=== PATIENT | female | born 1955 | race Caucasian/White ===

== ENCOUNTER 2016-12-12 12:54 | Inpatient (IN) | payer OTHER ==
[~2016-12-12] VITALS: Ht 157.5 cm; Wt 78.6 kg
[~2016-12-12 12:54] MED LIST: CYCL5TAB PO
[2016-12-12] MEDS ORDERED: ONDANSETRON 4 MG INJ IV STA (15:49)
[2016-12-12] MEDS ORDERED: SOD CHLORIDE 0.9% 1,000 ML IV STA (15:49)
[2016-12-12] MEDS ORDERED: ASPIRIN 81 MG TAB PO ONE (16:00)
--- NOTE | 2016-12-12 16:19 | RADRPT ---
PROCEDURE: XR Chest. CLINICAL INDICATION: Abdominal pain. TECHNIQUE: Single frontal view of the chest was obtained. COMPARISON: None FINDINGS: The soft tissues are normal. The bony elements are normal. The heart, cardiomediastinal silhouette and hilar structures are normal. The pulmonary vasculature is normal. There is a left-sided aorta. The lungs are clear. The costophrenic angles are normal. IMPRESSION: 1. Normal chest x-ray. RPTAT:AAJJ Physician Geoffrey Date Time Electronically viewed and signed by Juvencio Amin Physician on 12/12/2016 16:19 COOPER/
--- NOTE | 2016-12-12 16:35 | RADRPT ---
PROCEDURE: CT Head without contrast. CLINICAL INDICATION: L arm numbness, resolved weakness x 3 hours TECHNIQUE: Continuous axial CT images were obtained from the base of skull to the vertex. No cont rast was administered. The calculated radiation dose measures 720 mGy centimeters. The CTDI measures 43 mGy COMPARISON: 04/25/2015 FINDINGS: There is mild diffuse cerebral volume loss. The ventricles are symmetric and normal in configuratio n. There is a 16 by 11 mm calcified extra-axial dural-based structure overlying the left frontal op erculum, consistent with a calcified meningioma. There is minimal associated mass effect on the adj acent left frontal lobe. There is no midline shift. There is a small 4 x 12 mm noncalcified extra- axial dural-based lesion over the left frontal convexity, image [id number], likely reflecting an addition al small meningioma. There is a left parafalcine dural based lesion measuring 13 x 6 mm, image 601 - 20. There is no abnormal intra-axial or extra-axial fluid collection. There is no evidence of intracran ial hemorrhage. There are scattered areas of decreased attenuation in the supratentorial white matter, consistent wi th mild small vessel ischemic changes. There is minimal atherosclerotic vascular calcification. The bony calvarium is intact. There are scattered patchy areas of lucency in the calvarium, with int act appearing trabeculations, similar from prior examination. These may reflect hemangiomas, or amb[place] o[place]. The orbital soft tissue contents are unremarkable. Paranasal sinuses appear clear. IMPRESSION: 1. Mild age related cerebral volume loss. Mild small vessel ischemic changes. 2. Minimal atherosclerotic vascular calcification. 3. Stable calcified meningioma over the left frontal operculum, 16 x 11 mm. Additional small stabl e meningioma over the left high frontal convexity, 12 x 4 mm. Left anterior parafalcine meningioma, 6 x 13 mm, stable to minimally increased. RPTAT: DD .Keyon Malone MD, Date Time Electronically viewed and signed by .Keyon Malone MD, MD on 12/12/2016 16:35 .T/
[2016-12-12 16:50] LABS: ADD SCAN DIFF NO
[2016-12-12 16:52] LABS: BASOPHILS % 0.3 % (0.0-2.0); EOSINOPHILS # 0.1 10^3/ul (0.0-0.5); EOSINOPHILS % 0.9 % (0.0-7.0); HEMATOCRIT 38.9 % (37.0-47.0); HEMOGLOBIN 12.9 g/dl (12.0-16.0); LYMPHOCYTES # 2.2 10^3/ul (0.8-2.9); LYMPHOCYTES % 31.7 % (15.0-51.0); MEAN CORPUSCULAR HEMOGLOBIN 30.5 pg (29.0-33.0); MEAN CORPUSCULAR HGB CONC 33.2 g/dl (32.0-37.0); MEAN PLATELET VOLUME 9.6 fl (7.4-10.4); MONOCYTE # 0.4 10^3/ul (0.3-0.9); NEUTROPHIL # 4.2 10^3/ul (1.6-7.5); PLATELET COUNT 192 10^3/UL (140-415); RED BLOOD COUNT 4.23 10^6/ul (4.20-5.40); RED CELL DISTRIBUTION WIDTH 13.1 % (11.5-14.5); WHITE BLOOD COUNT 6.8 10^3/ul (4.8-10.8)
[2016-12-12 17:08] LABS: ALBUMIN 4.5 g/dl (3.3-4.9); CHLORIDE 104 mmol/L (97-110); SODIUM 143 mmol/L (135-144)
[2016-12-12 17:09] LABS: POTASSIUM 3.5 mmol/L (3.5-5.1)
[2016-12-12 17:11] LABS: ALANINE AMINOTRANSFERASE 38 IU/L (13-69); ALBUMIN/GLOBULIN RATIO 1.25; ALKALINE PHOSPHATASE 59 IU/L (42-121); ANION GAP 17 (8-16); ASPARTATE AMINO TRANSFERASE 23 IU/L (15-46); BILIRUBIN,INDIRECT 0.3 mg/dl (0-1.1); BILIRUBIN,TOTAL 0.3 mg/dl (0.2-1.3); BLOOD UREA NITROGEN 19 mg/dl (7-20); CARBON DIOXIDE 26 mmol/L (21-31); TOTAL PROTEIN 8.1 g/dl (6.1-8.1)
[2016-12-12 17:12] LABS: CALCIUM 9.3 mg/dl (8.4-10.2); GLUCOSE 101 mg/dl (70-220)
[2016-12-12 17:21] LABS: INR 0.94; PROTIME 12.6 Sec (12.2-14.2)
[2016-12-12 17:24] LABS: TROPONIN-I < 0.012 ng/ml (0.00-0.12)
[2016-12-12 17:47] LABS: ADD UMIC YES; URINE BILIRUBIN (Dip) NEGATIVE (NEGATIVE); URINE BLOOD (Dip) TRACE (NEGATIVE); URINE COLOR LT. YELLOW (YELLOW); URINE GLUCOSE (Dip) NEGATIVE (NEGATIVE); URINE KETONES (Dip) NEGATIVE (NEGATIVE); URINE LEUKOCYTE ESTERASE (Dip) 3+ (NEGATIVE); URINE NITRITE (Dip) NEGATIVE (NEGATIVE); URINE TOTAL PROTEIN (Dip) NEGATIVE (NEGATIVE); URINE UROBILINOGEN (Dip) 1.0 E.U./dL (0.1-1.0)
[2016-12-12] MEDS ORDERED: IOHEXOL 300MG/ML 150 ML BTL ONE (17:51)
[2016-12-12] MEDS ORDERED: SOD CHLORIDE 0.9% 100 ML ONE (17:51)
[2016-12-12 17:58] LABS: BACTERIA,URINE MANY; SQUAMOUS EPITHELIAL CELL,UR MODERATE
[2016-12-12] MEDS ORDERED: IOHEXOL 350MG/ML 50 ML BTL ONE (18:05)
[2016-12-12] MEDS ORDERED: IOHEXOL 100 ML ONE ×3 (18:05→19:51)
--- NOTE | 2016-12-12 18:46 | RADRPT ---
PROCEDURE: CT angiogram neck and brain. CLINICAL INDICATION: Neurologic deficit. Stroke symptoms. TECHNIQUE: The study was performed utilizing 0.6 axial sections from the thoracic inlet to the irving sofia with the use of 100 cc of Omnipaque 350 intravenous contrast. Multiplanar and rotational MIP re formats were obtained. 3-D reconstructions were not performed. CTDIvol = 37.18 mGy and DLP = 667.40 mGycm. COMPARISON: Noncontrast head CT 12/12/2016 FINDINGS: CTA neck: Right carotid system: No common carotid artery occlusion or atheromatous change of significance is present. The carotid bifurcation is normal. The internal carotid artery shows no evidence for occl usion or significant stenosis. The degree of internal carotid artery stenosis is estimated at less than 30%. Left carotid system:No common carotid artery occlusion or atheromatous change of significance is pre sent. The carotid bifurcation is normal. The internal carotid artery shows no evidence for occlusi on or significant stenosis. The degree of internal carotid artery stenosis is estimated at less than 30%. Internal carotid artery stenosis estimation is based upon NASCET criteria. Right vertebral artery: Codominant with the contralateral side and uniform in caliber throughout wi thout occlusion, dissection or stenosis. Left vertebral artery: Codominant in morphology with no evidence for dissection, stenosis or occlus ion. CTA brain: Anterior circulation: The intracranial internal carotid arteries are normal bilaterally with no rosalind dence for occlusion or stenosis. The anterior and middle cerebral arteries are also normal with no evidence for narrowing. There is no vasculitis pattern or extraluminal projection of contrast to dickinson ggest an aneurysm. Posterior circulation: Basilar artery is uniform in caliber with no evidence of stenosis. The basi lar tip is unremarkable for aneurysm. The posterior cerebral arteries are normal bilaterally as are the superior cerebellar arteries. No vascular malformation is identified. Venous structures: Sagittal sinuses appear patent without evidence of thrombus. Transverse and sig moid sinuses are unremarkable as is the torcula. Internal cerebral veins, vein of Cedric and straigh t sinus show no abnormalities. No cortical vein abnormality is appreciated. Other findings: Thyroid goiter is present with heterogeneous enlargement of the right thyroid lobe. Again seen is a calcified meningioma within the left middle cranial fossa adjacent to the sylvian fissure with minimal local mass effect only. RPTAT:HJJR IMPRESSION: 1. Unremarkable CT angiogram of the neck with no evidence of hemodynamically significant stenosis bi laterally. 2. Unremarkable CT angiogram of the brain with no findings to correlate with the patient's provided history. 3. Thyroid goiter. Consider follow-up outpatient thyroid ultrasound if deemed clinically warranted . 4. Again noted is a left-sided calcified meningioma adjacent to the sylvian fissure. Physician Steffany Date Time Electronically viewed and signed by Physician Steffany on 12/12/2016 18:45 JR/
--- NOTE | 2016-12-12 19:17 | RADRPT ---
AMENDMENT: 12/12/2016 9:04:50 PM Elliott Amin M.D Addendum: Note is made of a 3.1 x 2.4 x 2.1 cm nodule in the right lobe of the thyroid gland. Fur ther characterization workup with a thyroid sonogram is recommended. PROCEDURE: CTA head and neck CLINICAL INDICATION: Possible stroke. TECHNIQUE: The study was performed utilizing a high-resolution multidetector CT scanner. Direct th in section helical 0.625 mm axial sections were obtained through the head and neck after the unevent ful administration of 100 cc of Omnipaque 350 nonionic intravenous contrast material. Coronal and s agittal as well as maximal intensity projection reformations were obtained. 3-D images were made. T he images were reviewed on a PACS workstation. The total CTDIvol is 19.8 mGy and the DLP is 667.4 mG y-cm. One or more of the following dose reduction techniques were used: - Automated exposure control. - Adjustment of the mA and/or kV according to patient size. Use of iterative reconstruction technique. COMPARISON: CT scan of the brain 04/25/2015. FINDINGS: CTA NECK: The origins of the great vessels off the aortic arch are patent and normal in caliber wi thout significant stenosis. The common carotid arteries, carotid bulbs, and internal carotid arteri es are normal in appearance without significant atherosclerotic plaque or stenosis. The vertebral a rteries are also patent and normal in caliber bilaterally. There is no evidence of a hemodynamicall y significant stenosis or dissection. CTA BRAIN: There is a 1.4 by 1 cm by 0.8 cm extra-axial calcified mass in the left insular cistern. This is unchanged compared to the prior CT scan dated 04/25/2015. The anterior, middle and posterior cerebral arteries are unremarkable. The [place] of [place] is unre markable. The anterior communicating artery, basilar artery, posterior cerebral and superior cerebe llar arteries are unremarkable. The anterior inferior cerebellar and posterior inferior cerebellar arteries are unremarkable. The submandibular glands and intrinsic musculature of the tongue are normal. The parotid glands are normal. No enlarged cervical lymph nodes are identified. The globes and extraocular muscles are n ormal. The visible portions of the paranasal sinuses are clear. The dural sinuses are patent. IMPRESSION: 1. A 1.2 x 1.0 x 0.8 cm extra-axial calcified mass consistent with a meningioma is identified adjac ent to the left insular cistern. 2. Otherwise, negative CT angiogram of the head and neck. 3. Findings were phoned to Dr. Irby. RPTAT:AAJJ Physician Geoffrey Date Time Electronically viewed and signed by Juvencio Amin Physician on 12/12/2016 21:04 /
[2016-12-12] MEDS ORDERED: ASPIRIN 325 MG TAB PO ONE (19:30)
[2016-12-12] MEDS ORDERED: LIDOCAINE/MYLANTA 40 ML BTL PO ONE (19:30)
[2016-12-12] MEDS ORDERED: CEFTRIAXONE 1 GM/50 ML (PMX) 50 ML IVPB ONE (19:30)
[2016-12-12] MEDS ORDERED: morphine 2 MG INJ IV ONE (19:30)
[2016-12-12] MEDS ORDERED: ACETAMINOPHEN 325 MG TAB PO PRN (20:00)
[2016-12-12] MEDS ORDERED: ONDANSETRON 4 MG INJ IV PRN (20:00)
[2016-12-12 21:46] VITALS: TEMP 98.3
--- NOTE | 2016-12-12 23:04 | ERA ---
ER Documentation Chief Complaint Date/Time DATE: 12/12/16 TIME: 22:58 Chief Complaint CHEST PAIN RADIATING TO BACK,WEAKNESS HPI 61-year-old female presenting for chest pain radiating to the back for 6 hours. Also has left arm numbness. Patient states that for a short time her left hand was completely paralyzed. This lasted for less than an hour before it resolves completely. Currently she has no symptoms in her left hand. She had no other focal weaknesses and did not get dizzy or have any speech difficulties. Denies headache. States that she does have something in her brain but she was not able to say if it was tumor, aneurysm or what exactly it was. Denies nausea and vomiting. Denies fever and chills. Did have mild shortness of breath per ROS All systems reviewed and are negative except as per history of present illness. Medications Home Meds Active Scripts Cyclobenzaprine Hcl* (Cyclobenzaprine Hcl*) 5 Mg Tablet, 5 MG PO QHS Y for PAIN LEVEL 6-10 for 7 Days, TAB Prov:HERMINIA SOTO PA-C 04/25/15 Allergies Allergies: Coded Allergies: No Known Allergy (Unverified , 04/25/15) PMhx/Soc History of Surgery: Yes (appendectomy) Anesthesia Reaction: No Hx Neurological Disorder: Yes (brain tumor) Hx Respiratory Disorders: No Hx Cardiac Disorders: No Hx Psychiatric Problems: No Hx Miscellaneous Medical Probl: Yes (high cholesterol) Hx Alcohol Use: No Hx Substance Use: No Hx Tobacco Use: No Smoking Status: Former smoker Physical Exam Vitals Vital Signs Date Time Temp Pulse Resp B/P Pulse Ox O2 Delivery O2 Flow Rate FiO2 12/12/16 21:46 98.3 60 17 113/65 94 Room Air 12/12/16 20:29 68 14 112/81 95 Room Air 12/12/16 19:06 98.3 79 15 113/78 98 Room Air 12/12/16 16:30 68 134/73 98 Room Air 12/12/16 13:00 99.4 81 18 132/63 98 Physical Exam Const: [] No acute distress Head: Atraumatic Eyes: Normal Conjunctiva, EOMI, PERRLA ENT: Normal External Ears, Nose and Mouth. Neck: Full range of motion..~ No meningismus. Resp: Clear to auscultation bilaterally Cardio: Regular rate and rhythm, no murmurs Abd: Soft, non tender, non distended. 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 Psych: Normal Mood and Affect Result Diagram: 12/12/16 1630 12/12/16 1630 Results 24 hrs Laboratory Tests Test 12/12/16 16:30 12/12/16 17:00 White Blood Count 6.810^3/ul Red Blood Count 4.2310^6/ul Hemoglobin 12.9g/dl Hematocrit 38.9% Mean Corpuscular Volume 92.0fl Mean Corpuscular Hemoglobin 30.5pg Mean Corpuscular Hemoglobin Concent 33.2g/dl Red Cell Distribution Width 13.1% Platelet Count 44566^3/UL Mean Platelet Volume 9.6fl Neutrophils % 61.0% Lymphocytes % 31.7% Monocytes % 6.0% Eosinophils % 0.9% Basophils % 0.3% Nucleated Red Blood Cells % 0.0/100WBC Neutrophils # 4.210^3/ul Lymphocytes # 2.210^3/ul Monocytes # 0.410^3/ul Eosinophils # 0.110^3/ul Basophils # 0.010^3/ul Nucleated Red Blood Cells # 0.010^3/ul Prothrombin Time 12.6Sec Prothrombin Time Ratio 1.0 INR International Normalized Ratio 0.94 Activated Partial Thromboplast Time 23.0Sec Sodium Level 143mmol/L Potassium Level 3.5mmol/L Chloride Level 104mmol/L Carbon Dioxide Level 26mmol/L Anion Gap 17 Blood Urea Nitrogen 19mg/dl Creatinine 0.80mg/dl Glucose Level 101mg/dl Lactic Acid Level 1.1mmol/L Calcium Level 9.3mg/dl Total Bilirubin 0.3mg/dl Direct Bilirubin 0.00mg/dl Indirect Bilirubin 0.3mg/dl Aspartate Amino Transf (AST/SGOT) 23IU/L Alanine Aminotransferase (ALT/SGPT) 38IU/L Alkaline Phosphatase 59IU/L Troponin I < 0.012ng/ml Total Protein 8.1g/dl Albumin 4.5g/dl Globulin 3.60g/dl Albumin/Globulin Ratio 1.25 Lipase 96U/L Urine Color LT. YELLOW Urine Clarity SLIGHTLY CLOUDY Urine pH 6.0 Urine Specific Pease 1.025 Urine Ketones NEGATIVE Urine Nitrite NEGATIVE Urine Bilirubin NEGATIVE Urine Urobilinogen 1.0 E.U./dL Urine Leukocyte Esterase 3+ Urine Microscopic RBC 2-5/HPF Urine Microscopic WBC >50/HPF Urine Squamous Epithelial Cells MODERATE Urine Bacteria MANY Urine Hemoglobin TRACE Urine Glucose NEGATIVE% Urine Total Protein NEGATIVE Current Medications Medications (Trade) Dose Ordered Sig/Ben Route PRN Reason Start Time Stop Time Status Last Admin Dose Admin Sodium Chloride (NS) 1,000 ml @ 1,000 mls/hr Q1H STAT IV 12/12/16 15:49 12/12/16 16:48 DC 12/12/16 17:20 Ondansetron HCl (Zofran Inj) 4 mg ONCE STAT IV 12/12/16 15:49 12/12/16 15:51 DC 12/12/16 20:27 Aspirin (Aspirin) 324 mg ONCE ONCE PO 12/12/16 16:00 12/12/16 19:08 DC 12/12/16 17:19 IV Flush 10 ml 10 ml STK-MED ONCE .ROUTE 12/12/16 17:51 12/12/16 17:52 DC 12/12/16 18:32 Sodium Chloride (NS) 100 ml @ ud STK-MED ONCE .ROUTE 12/12/16 17:51 12/12/16 17:52 DC 12/12/16 18:32 Iohexol 150 ml 150 ml STK-MED ONCE .ROUTE 12/12/16 17:51 12/12/16 17:52 DC Iohexol (Omnipaque) 100 ml @ ud STK-MED ONCE .ROUTE 12/12/16 18:05 12/12/16 18:06 DC 12/12/16 18:33 Iohexol 50 ml 50 ml STK-MED ONCE .ROUTE 12/12/16 18:05 12/12/16 18:06 DC Ceftriaxone Sodium (Rocephin) 50 ml @ 100 mls/hr ONCE ONCE IVPB 12/12/16 19:30 12/12/16 19:59 DC 12/12/16 20:23 Aspirin (Aspirin) 325 mg ONCE ONCE PO 12/12/16 19:30 12/12/16 19:31 DC Miscellaneous Medication (Gi Cocktail (2)) 40 ml ONCE ONCE PO 12/12/16 19:30 12/12/16 19:31 DC Morphine Sulfate (morphine) 2 mg ONCE ONCE IV 12/12/16 19:30 12/12/16 19:31 DC 12/12/16 20:27 Ondansetron HCl (Zofran Inj) 4 mg ER BRIDGE PRN IV NAUSEA AND/OR VOMITING 12/12/16 20:00 12/13/16 19:59 Acetaminophen 650 mg 650 mg ER BRIDGE PRN PO MILD PAIN/FEVER 12/12/16 20:00 12/13/16 19:59 Iohexol 100 ml @ ud STK-MED ONCE .ROUTE 12/12/16 19:51 12/12/16 19:52 DC Iohexol (Omnipaque) 100 ml @ ud STK-MED ONCE .ROUTE 12/12/16 19:51 12/12/16 19:52 DC Procedures/MDM Transient ischemic attack and chest pain. Patient did not mention left hand weakness until after it brought back a warm blanket for her. Symptom was concerning for cerebral ischemia or hemorrhagic stroke. CT was negative for these potential meningioma, which is likely the thing that the patient was told she had in her head but could not remember. Symptoms of pain radiation and left hand weakness are also concerning for thoracic aortic dissection. Fortunately the CTA of the neck went down to the level of the heart and showed no dissection. Patient is very comfortable in the emergency room. She was given aspirin after the CT returned negative for hemorrhage and given morphine which helped resolve her pain. She was stable and walking around the emergency room. NIH stroke scale was 0 and because of completely resolve symptoms TPA is not indicated. She will be admitted for workup of the chest pain as well as monitoring for the stroke and likely further testing. Dr. marks is admitting. 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 Departure Diagnosis: Primary Impression: TIA (transient ischemic attack) Additional Impression: Chest pain Condition: Stable SUKH SHIN DO December 12, 2016 23:04
[2016-12-13] VITALS (13 sets, daily range): BP systolic 92–141; BP diastolic 59–73; PULSE 50–76; RESP 18–20; Ht 157.5 cm; Wt 78.6 kg
[2016-12-13] MEDS ORDERED: ROSU5TAB5 PO (01:41)
[2016-12-13] MEDS ORDERED: FAMO20TA18 PO (01:41)
[2016-12-13] MEDS ORDERED: IBUP200C11 PO (01:41)
[2016-12-13] MEDS ORDERED: NITROGLYCERIN (SL) 0.4 MG TAB SL PRN (02:00)
[2016-12-13] MEDS ORDERED: ACETAMINOPHEN 325 MG TAB PO PRN (02:00)
[2016-12-13] MEDS ORDERED: ONDANSETRON 4 MG INJ IV PRN (02:00)
[2016-12-13 02:38] LABS: ADD SCAN DIFF NO
[2016-12-13 02:39] LABS: BASOPHILS % 0.2 % (0.0-2.0); EOSINOPHILS # 0.1 10^3/ul (0.0-0.5); EOSINOPHILS % 1.6 % (0.0-7.0); HEMATOCRIT 37.3 % (37.0-47.0); HEMOGLOBIN 12.1 g/dl (12.0-16.0); LYMPHOCYTES # 2.3 10^3/ul (0.8-2.9); LYMPHOCYTES % 47.3 % (15.0-51.0); MEAN CORPUSCULAR HEMOGLOBIN 29.7 pg (29.0-33.0); MEAN CORPUSCULAR HGB CONC 32.4 g/dl (32.0-37.0); MEAN CORPUSCULAR VOLUME 91.6 fl (82.0-101.0); MEAN PLATELET VOLUME 9.4 fl (7.4-10.4); MONOCYTE # 0.4 10^3/ul (0.3-0.9); MONOCYTES % 7.1 % (0.0-11.0); NEUTROPHIL # 2.2 10^3/ul (1.6-7.5); NEUTROPHILS % 43.6 % (39.0-77.0); PLATELET COUNT 144 10^3/UL (140-415); RED BLOOD COUNT 4.07 10^6/ul (4.20-5.40); RED CELL DISTRIBUTION WIDTH 13.2 % (11.5-14.5)
[2016-12-13] MEDS: SOD CHLORIDE 0.9% 1,000 ML IV SCH ×3 (02:43→22:00)
[2016-12-13 03:03] LABS: ALBUMIN 3.4 g/dl (3.3-4.9)
[2016-12-13 03:04] LABS: POTASSIUM 3.6 mmol/L (3.5-5.1)
[2016-12-13 03:05] LABS: CREATININE 0.55 mg/dl (0.44-1.00)
[2016-12-13 03:06] LABS: ALBUMIN/GLOBULIN RATIO 1.03; BILIRUBIN,INDIRECT 0.3 mg/dl (0-1.1); BILIRUBIN,TOTAL 0.3 mg/dl (0.2-1.3); CALCIUM 8.3 mg/dl (8.4-10.2); PHOSPHORUS 4.3 mg/dl (2.5-4.9); TOTAL PROTEIN 6.7 g/dl (6.1-8.1)
[2016-12-13 03:07] LABS: CHOL/HDL RATIO 5.8 RATIO; MAGNESIUM 1.8 mg/dl (1.7-2.5)
[2016-12-13] MEDS: FAMOTIDINE 20 MG TAB PO SCH (08:21)
[2016-12-13] MEDS: ASPIRIN 81 MG TAB PO SCH (08:21)
[2016-12-13] MEDS: HEPARIN 5,000 UNIT/0.5 ML VIAL SC SCH ×2 (08:21→21:11)
--- NOTE | 2016-12-13 09:55 | RADRPT ---
PROCEDURE: US Carotids. CLINICAL INDICATION: bruit , CVA, TIA TECHNIQUE: Multiple sonographic of the carotid bifurcation region and vertebral arteries were obta ined utilizing alonso scale, duplex and color-flow imaging. The images were reviewed on a PACS worksta tion. COMPARISON: No prior studies are available for comparison. FINDINGS: Evaluation of the right carotid bifurcation region reveals no significant calcific atherosclerotic d isease. Evaluation of the left carotid bifurcation region reveals no significant calcific atherosclerotic di sease. There is antegrade flow within the vertebral arteries bilaterally. RIGHT CAROTID MEASUREMENTS: Common Carotid Bgjkax25 (cm/sec) Internal Carotid Artery - cggjyctn10 (cm/sec) Internal Carotid Artery - mid34.9 (cm/sec) Internal Carotid Artery - tuvlsb93.1 (cm/sec) Internal Carotid/Common Carotid1.26 LEFT CAROTID MEASUREMENTS: Common Carotid Hmhogd79.5 (cm/sec) Internal Carotid Artery - tdjigwjy84.2 (cm/sec) Internal Carotid Artery - mid57.8 (cm/sec) Internal Carotid Artery - .1 (cm/sec) Internal Carotid/Common Carotid0.96 RPTAT: AA IMPRESSION: No evidence for hemodynamically significant stenosis in the bilateral internal carotid arteries - va lidated velocity measurements with angiographic measurements, velocity criteria are extrapolated fro m diameter data as defined by the Society of Radiologists in Ultrasound Consensus Conference Radiolo gy 2003; 229;340-346. This study does indirectly reference the measurement of the distal ICA diamet er as the denominator for stenosis measurement. Normal antegrade flow in the vertebral arteries bilaterally. .El Kaiser MD, Date Time Electronically viewed and signed by .El Kaiser MD, MD on 12/13/2016 09:55 .S/
--- NOTE | 2016-12-13 11:44 | HP ---
DATE OF ADMISSION: 12/12/2016 CHIEF COMPLAINT: Left upper extremity weakness and numbness, and chest pain. HISTORY OF PRESENT ILLNESS: The patient is a 61-year-old female with a history of meningioma and dy slipidemia who presented to the emergency department with the above stated chief complaint. The pat mackenzie reported chest pain which is likely left-sided, with no radiation, described as sharp, as well as left arm/hand weakness and numbness that occurred about 6 or 7 hours prior to the . Her lef t upper extremity symptoms completely resolved, with just intermittent chest pain which was actually radiating to her back. She denied any slurred speech, seizure-like activity and visual disturbance and facial droop. When she presented to the ER, vitals were stable. CBC and CMP were unremarkable. Brain CT shows a stable calcified meningioma and CT angio of the head and neck without any acute findings, only the m eningioma and that the CT of the neck showed a thyroid goiter. The patient was given aspirin while she was in the ER. A urinalysis in the ER was consistent with u rinary tract infection. REVIEW OF SYSTEMS: A 12-point review of systems performed and was negative except as mentioned in H PI. PAST MEDICAL HISTORY: As per HPI. PAST SURGICAL HISTORY: Left knee replacement and appendectomy. SOCIAL HISTORY: Denied a history of tobacco, alcohol or illicit drug use. ALLERGIES: NO KNOWN DRUG ALLERGIES. HOME MEDICATIONS: 1. Ibuprofen. 2. Crestor. 3. Pepcid. PHYSICAL EXAMINATION: VITAL SIGNS: Stable. GENERAL: No acute distress, sleepy but arousable. HEENT: No obvious head deformity, pupils reactive to light, extraocular movements intact. CARDIOVASCULAR: Regular rate and rhythm. No extra sounds. LUNGS: Clear. ABDOMEN: Soft, nontender, nondistended. Positive bowel sounds. EXTREMITIES: No edema. NEUROLOGIC: No focal deficits. Sensation is intact. LABORATORY: CBC and CMP are within normal limits. IMAGING: Several imagings with their results were mentioned in the HPI. IMPRESSION 1. Transient ischemic attack. 2. Chest pain. 3. Urinary tract infection. 4. Enlarged right thyroid lobe. 5. Chronic meningioma. PLAN: Given presentation of TIA will complete a stroke workup. So far she had a CT of the head as well as a CT angio of the head and neck with results as mentioned in the HPI, but without any acute findings. We will follow up on the carotid Doppler results as well as a 2D echo. We will place a n eurology consult. She will have physical therapy and formal swallow/speech evaluation. She will be placed on aspirin, continue on Crestor. Will check A1c and fasting lipid panel. She will also nee d to be ruled out for ACS and as such, will send additional troponins. We will follow up on 2D echo . The initial EKG without ST elevation or depression. We will follow up on the urine culture resul ts. She will be continued on antibiotic for infection. Further workup and management will be per clinical course. Dictated By: ABIGAIL JONES/DOLORES Conf#: [id number] DID#: [id number]
[2016-12-13] MEDS: KETOROLAC 15 MG INJ IV PRN (12:07)
[2016-12-13] MEDS: CYCLOBENZAPRINE 10 MG TAB PO SCH ×2 (12:07→21:08)
[2016-12-13] MEDS: LIDOCAINE 5% PATCH TD SCH (12:07)
--- NOTE | 2016-12-13 12:52 | RADRPT ---
Echocardiogram Report Patient Name: KAREN KENDALL Gender: Female Date: 1955 Study Date: 13-Dec-2016 Director Business Development: Omaira Azul [facility] Ref[facility] Physician: ABIGAIL GRANADO Quality: Good Procedures: Transthoracic echocardiogram with complete 2D, M-Mode, and doppler examination. Indications: Chest Pain. 2D/M Mode Doppler Measurement Value Normal Ranges Measurement Value Normal Ranges LVIDd 2D 4.6 3.5 - 5.6 cm AV Peak Chandler 1.5 m/sec LVIDs 2D 2.8 2.1 - 4.1 cm AV Peak PG 9.0 mmHg FS 2D 38.0 % AI Peak PG 73.0 mmHg LVPWd 2D 0.8 0.6 - 1.1 cm AI Peak Chandler 4.3 m/sec IVSd 2D 0.9 0.6 - 1.1 cm AI PHT 532.0 msec IVS/LVPW 2D 1.1 LVOT Peak Chandler 0.9 m/sec AoR Diam 2D 2.7 2.0 - 3.7 cm LVOT Peak PG 3.0 mmHg LA/Ao 2D 1 0 - 1 MV E Peak Chandler 0.7 m/sec EDV 2D 96.1 cm3 MV A Peak Chandler 0.7 m/sec ESV 2D 22.9 cm3 MV E/A 1.0 LA Dimen 2D 3.0 2.3 - 4.0 cm MV Decel Time 264 msec MV E/A 1.0 TR Peak Chandler 2.3 m/sec TR Peak PG 22.0 mmHg RVSP 25.0 mmHg Findings Left Ventricle: Normal left ventricular systolic function. Normal left ventricular cavity size. Normal left ventricular wall thickness. Ejection fraction is visually estimated at 55 %. Abnormal Diastolic Function. Right Ventricle: Normal right ventricular size. Normal right ventricular systolic function. Left Atrium: The left atrium is normal in size. Right Atrium: The right atrium is normal in size. Mitral Valve: Normal appearance of the mitral valve. Mild mitral valve regurgitation. Aortic Valve: No hemodynamically significant aortic stenosis by doppler. Aortic cusps appear mildly calcified. Mild aortic valve regurgitation. Tricuspid Valve: Normal appearance of the tricuspid valve. Estimated peak PA systolic pressure 25 mmHg. There is trace tricuspid regurgitation. Pulmonic Valve: Normal pulmonic valve appearance. There is trace pulmonic regurgitation. Pericardium: Normal pericardium with no significant pericardial effusion. Aorta: Normal aortic root. IVC: Normal size and normal respiratory collapse consistent with normal right atrial pressure. Conclusions 1.Normal left ventricular systolic function. Normal left ventricular cavity size. Normal left ventricular wall thickness. Ejection fraction is visually estimated at 55 %. Abnormal Diastolic Function. 2.Normal right ventricular size. Normal right ventricular systolic function. 3.The left atrium is normal in size. 4.The right atrium is normal in size. 5.Normal appearance of the mitral valve. Mild mitral valve regurgitation. 6.No hemodynamically significant aortic stenosis by doppler. Mild aortic valve regurgitation. 7.Estimated peak PA systolic pressure 25 mmHg. There is trace tricuspid regurgitation. 8.Normal pericardium with no significant pericardial effusion. Electronically Signed By: Manuel Hernandez 13-Dec-2016 12:51:39 -0700 Patient Name: KAREN KENDALL Study Date: 13-Dec-2016 [id number]
[2016-12-13] MEDS ORDERED: LORAZEPAM 2 MG INJ IV ONE (17:30)
--- NOTE | 2016-12-13 19:46 | RADRPT ---
AMENDMENT: 12/13/2016 7:50:15 PM Reyes Brizuela M.D. Impression #4: Minimal nonspecific white matter changes, which may reflect chronic small vessel isc hemic changes. PROCEDURE: MRI Brain without contrast. CLINICAL INDICATION: Transient ischemic attack TECHNIQUE: Multiplanar MRI of the brain without contrast was performed on a 3.0 T scanner with the following sequences obtained: T1-weighted, T2-weighted/FLAIR, diffusion weighted (with ADC map), GR E. COMPARISON: CT brain 12/12/2016 FINDINGS: No acute/recent ischemic infarction or intracranial hemorrhage / blood degradation products are iden tified. No extra-axial fluid collection is seen. 3 small extra-axial lesions are again demonstrated, one overlying the left frontal operculum measuri ng up to 1.5 cm with associated susceptibility compatible with calcifications, another over the post erior left frontal convexity measuring up to 1.4 cm, and the other in the anterior left parasagittal region measuring up to 1.5 cm. These are compatible with meningiomas. No significant mass effect or adjacent vasogenic edema is identified. There is no midline shift. The ventricles and sulci are mildly enlarged, compatible with volume loss. A few scattered minimal areas of increased T2-weighted FLAIR signal intensity are seen in the deep w rika matter which are nonspecific but may reflect chronic small vessel ischemic changes. Flow voids are identified in the proximal intracranial arteries and dural sinuses suggesting patency . The mastoid air cells and paranasal sinuses are grossly clear. IMPRESSION: 1. No evidence of acute intracranial pathology. 2. Three small meningiomas, two in the left frontal region and the other at the anterior left lottie agittal region. No associated vasogenic edema, or midline shift. 3. Mild volume loss. RPTAT: HESO .Reyes Brizuela MD, MD Date Time Electronically viewed and signed by .Reyes Brizuela MD, MD on 12/13/2016 19:51 .O/
[2016-12-13] MEDS ORDERED: ATORVASTATIN 20 MG TAB PO SCH (21:00)
[2016-12-13] MEDS: CEFTRIAXONE 1 GM/50 ML (PMX) 50 ML IVPB SCH (21:08)
[2016-12-14] VITALS (14 sets, daily range): BP systolic 96–138; BP diastolic 55–80; PULSE 61–122; RESP 18–20
[2016-12-14] MEDS: CYCLOBENZAPRINE 10 MG TAB PO SCH ×2 (00:48→08:20)
--- NOTE | 2016-12-14 02:36 | CONS ---
DATE OF ADMISSION: 12/12/2016 DATE OF CONSULTATION: 12/13/2016 TYPE OF CONSULTATION: Neurological. HISTORY OF PRESENT ILLNESS: The patient is a 61-year-old lady with past medical history of dyslipidemia, also she has history of meningioma, who presented with complaints of left upper extremity weakness and numbness along with chest pain. According to the chart, chest pain left sided, no radiation, sharp. Symptoms of weakness and numbness have resolved, but intermittent chest pain was present on admission. The patient's EKG showed sinus rhythm. She had echocardiogram which was read as essentially normal study, ejection fraction of 55. She had CT angiogram of the neck and head which was unremarkable, though goiter was noticed. CAT scan of the head shows stable calcified meningiomas in comparison to CT in 2015. Three stable calcified meningiomas were seen. MRI of the brain was done, confirmed presence of 3 small meningiomas. Left frontal operculum 1.5 cm, another one left frontal convexity 1.4 cm, and left parasagittal region up to 1.5 cm. MRI of the brain was done without contrast. No acute strokes or other abnormality was seen. The patient's labs show normal CBC. Hemoglobin A1c 6.2. Comprehensive metabolic panel within normal limits. Troponins negative. Cholesterol 200, LDL 129, triglycerides 186. Urinalysis: 3+ leukocyte esterase, more than 50 WBCs. Normal PT, PTT. MEDICATIONS: Prior to admission: 1. Crestor. 2. Advil. 3. Famotidine. Currently she is on: 1. Lipitor 20 mg. 2. Ceftriaxone. 3. Flexeril. 4. Toradol. 5. Lidoderm. 6. Pepcid. 7. Aspirin 81 mg. 8. Heparin for DVT prevention. According to the nurse, the patient is very claustrophobic and was refusing MRI , so she was premedicated with benzodiazepines, and she is very sleepy since. ALLERGIES: NONE. SOCIAL HISTORY: No alcohol, tobacco, drug use. FAMILY HISTORY: Not contributory. REVIEW OF SYSTEMS: Unable to obtain. PHYSICAL EXAMINATION: VITAL SIGNS: Temperature 98.1, pulse 76, respirations 18, blood pressure 103/ 64. GENERAL: Not in acute distress, lying in bed. HEENT: Normocephalic, atraumatic head. NECK: No carotid bruits. No thyromegaly. LUNGS: Clear to auscultation bilaterally. CARDIAC: Normal cardiac rhythm and sounds. ABDOMEN: Soft, nontender. EXTREMITIES: No cyanosis, clubbing or edema. NEUROLOGIC: She is lethargic, very briefly arousable by pain, mumbles, goes back to sleep. No definite response to visual threat. Pupils reactive from 4 to 2 mm bilaterally. Extraocular movements intact. Corneal reflexes present bilaterally. Symmetrical face. Gag is present. The patient moves all extremities symmetrically to noxious stimuli. Deep tendon reflexes 2+ upper extremities, absent in lower extremities. Downgoing toes bilaterally. IMPRESSION: 1. Status post possible transient ischemic attack with left upper extremity weakness and numbness per chart, resolved. The patient also presented with chest pain, and workup for cardiological reasons underway. I would recommend to continue aspirin. I will increase statin, Lipitor 40 mg at bedtime. It is usually okay to allow elevated blood pressure in the first few days after acute stroke/TIA, but patient's vital signs essentially within normal limits since admission. She has been normotensive, so continue to keep normotensive and euglycemic. 2. Encephalopathy. She is very lethargic after she was premedicated with benzodiazepine for MRI. Will follow. Continue current treatment. Thank you very much for this interesting consultation. Dictated By: SE GATES/DOLORES Conf#: [id number] DID#: [id number] MTDD
[2016-12-14 07:08] LABS: ADD SCAN DIFF NO
[2016-12-14 07:20] LABS: BASOPHILS % 0.2 % (0.0-2.0); EOSINOPHILS # 0.1 10^3/ul (0.0-0.5); EOSINOPHILS % 1.7 % (0.0-7.0); HEMATOCRIT 42.2 % (37.0-47.0); HEMOGLOBIN 13.3 g/dl (12.0-16.0); LYMPHOCYTES # 1.6 10^3/ul (0.8-2.9); LYMPHOCYTES % 39.6 % (15.0-51.0); MEAN CORPUSCULAR HEMOGLOBIN 29.6 pg (29.0-33.0); MEAN CORPUSCULAR HGB CONC 31.5 g/dl (32.0-37.0); MEAN CORPUSCULAR VOLUME 93.8 fl (82.0-101.0); MEAN PLATELET VOLUME 9.7 fl (7.4-10.4); MONOCYTE # 0.3 10^3/ul (0.3-0.9); MONOCYTES % 6.5 % (0.0-11.0); NEUTROPHIL # 2.1 10^3/ul (1.6-7.5); NEUTROPHILS % 51.8 % (39.0-77.0); PLATELET COUNT 187 10^3/UL (140-415); RED CELL DISTRIBUTION WIDTH 13.2 % (11.5-14.5); WHITE BLOOD COUNT 4.1 10^3/ul (4.8-10.8)
[2016-12-14 08:05] LABS: CALCIUM 9.1 mg/dl (8.4-10.2); CREATININE 0.65 mg/dl (0.44-1.00); POTASSIUM 4.1 mmol/L (3.5-5.1)
[2016-12-14] MEDS: ASPIRIN 81 MG TAB PO SCH (08:20)
[2016-12-14] MEDS: FAMOTIDINE 20 MG TAB PO SCH (08:20)
[2016-12-14] MEDS: SOD CHLORIDE 0.9% 1,000 ML IV SCH ×2 (08:20→18:41)
[2016-12-14] MEDS: HEPARIN 5,000 UNIT/0.5 ML VIAL SC SCH ×2 (08:22→20:42)
[2016-12-14] MEDS: LIDOCAINE 5% PATCH TD SCH (08:24)
--- NOTE | 2016-12-14 09:26 | RADRPT ---
PROCEDURE: CT brain without contrast CLINICAL INDICATION: Code stroke, motor changes TECHNIQUE: CT of the brain without contrast performed on a multidetector CT scanner, with multiplan ar reformats. One or more of the following dose reduction techniques were used: Automated exposure control, adjustment in mA and / or kV according to patient size, use of iterative reconstructive maninder hnique. CTDIvol = 44 mGy; DLP = 630 mGy-cm. COMPARISON: CT brain 12/12/2016, MRI brain 12/13/2016 FINDINGS: No acute intracranial hemorrhage is identified. No extra-axial fluid collection is seen. Again demonstrated are the partially calcified extra-axial lesion overlying the left frontal opercul um measuring up to 1.5 cm, the isodense extra-axial lesion at the posterior left frontal convexity m easuring up to 1.4 cm, and the isodense extra-axial lesion in the anterior left parasagittal region measuring up to 1.4 cm, compatible with meningiomas. These are not significantly changed. Again th ere is no significant mass effect or adjacent vasogenic edema identified. There is no midline shift . Ventricles and sulci are mildly enlarged compatible with volume loss. There are minimal areas of hypodensity in the periventricular - deep white matter which are nonspeci fic but suggestive of chronic small vessel ischemic changes. Crow-white differentiation appears pre served. Atherosclerotic calcifications of the intracranial internal carotid arteries are noted. Osseous structures are unremarkable. Mastoid air cells and imaged paranasal sinuses grossly clear. IMPRESSION: 1. No acute intracranial pathology, or significant change identified. 2. Three small meningiomas, two in the left frontal region and the other at the anterior left lottie agittal region without associated vasogenic edema, or midline shift. 3. Mild volume loss, with minimal chronic small vessel ischemic changes. Results called to Rory Godoy RN at 09:20 a.m., 12/14/2016. RPTAT: VV .Reyes Brizuela MD, Date Time Electronically viewed and signed by .Reyes Brizuela MD, on 12/14/2016 09:26 .O/
--- NOTE | 2016-12-14 10:20 | PN ---
Date/Time of Note Date/Time of Note DATE: 12/14/16 TIME: 10:20 Assessment/Plan VTE Prophylaxis VTE Prophylaxis Intervention: SCD's Lines/Catheters IV Catheter Type (from Nrsg): Saline Lock Assessment/Plan Assessment/Plan 1. Acute encephalopathy 2. Urinary tract infection 3. Dyslipidemia 4. Prediabetes 5. Enlarged thyroid gland on imaging 6. Focal paraspinal back pain likely secondary to musculoskeletal sprain PLAN: * Code stroke has been activated, patient is status status post CT scan of the brain that showed no acute bleed. Meningiomas is said to be chronic. Patient' s overall clinical picture seems more like seizures especially with a history that acute ischemic events. We will await and see what neurology final recommendations are. In the interim we will continue current antibiotics, continue sliding scale insulin. Order physical therapy eval. Do a thyroid screen. And go from there. * Will speak with neurology if they recommend continuing the Flexeril or discontinuing it. It is unlikely that it precipitated this event. Continue lidocaine patch for now for pain. * Further interventions per clinical course * Evaluation time so far has been almost an hour, I will be returning to speak with [facility] neurologist, as well as to speak with patient reassess her and speak with family. Subjective 24 Hr Interval Summary Free Text/Dictation I was emergently called to patient site as a rapid response. The patient had had an acute change in her mental status. When nursing had done the rounds early in the morning, the patient seemed alert and appropriate. She had just gotten of the telephone with her daughter when she had had a normal conversation. However when the nurse returned to give the patient her medications, she felt had to be globally changed. The patient was not able to fully verbalize her name. She is able to move her mouth but she was mumbling. She did not seem to have any one focal deficits but overall she was able to move any extremities. She seemed somewhat flaccid. She had very poor spout liner. I arrived at the bedside after the [employer]ENT was activated and based on her symptoms I ordered a code stroke. Stat bedside glucose was 141, and on the telemetry EKG she was sinus rhythm. I also had a quick conversation with the neurologist Dr. Guaman and he agreed a code stroke activation and thought that her symptoms were likely secondary to seizures versus an acute ischemic stroke. The patient was taken down to CAT scan and I reviewed the results and there are no acute findings. I have also given the physician to physician consult with the telemetry neurologist, and at this time the patient is being evaluated by the telemetry neurologist. Upon returning from CT scan the patient was slightly improved as evidenced on my physical examination below Exam/Review of Systems Vital Signs Vitals Vital Signs Date Time Temp Pulse Resp B/P Pulse Ox O2 Delivery O2 Flow Rate FiO2 12/14/16 08:00 61 12/14/16 07:17 98.2 19 138/71 95 12/13/16 01:15 Room Air Intake and Output 12/13/16 12/13/16 12/14/16 15:00 23:00 07:00 Intake Total 550 ml 200 ml Balance 550 ml 200 ml Exam Constitutional: other (Lethargic), No distress Head: atraumatic, normocephalic Eyes: PERRL, No icteric ENMT: mucosa pink and moist Neck: non-tender, supple Respiratory: clear to auscultation, No labored breathing Cardiovascular: regular rate and rhythm, No murmurs/extra sounds Gastrointestinal: bowel sounds, non-tender, soft Extremities: No edema Neurological: lethargic, No focal weakness Results Result Diagram: 12/14/16 0647 12/14/16 0642 Results 24 hrs Laboratory Tests Test 12/14/16 06:42 12/14/16 06:47 12/14/16 08:47 Sodium Level 142 Potassium Level 4.1 Chloride Level 107 Carbon Dioxide Level 29 Anion Gap 10 Blood Urea Nitrogen 18 Creatinine 0.65 Glucose Level 104 Calcium Level 9.1 Magnesium Level 2.0 White Blood Count 4.1 L Red Blood Count 4.50 Hemoglobin 13.3 Hematocrit 42.2 Mean Corpuscular Volume 93.8 Mean Corpuscular Hemoglobin 29.6 Mean Corpuscular Hemoglobin Concent 31.5 L Red Cell Distribution Width 13.2 Platelet Count 187 # Mean Platelet Volume 9.7 Neutrophils % 51.8 Lymphocytes % 39.6 Monocytes % 6.5 Eosinophils % 1.7 Basophils % 0.2 Nucleated Red Blood Cells % 0.0 Neutrophils # 2.1 Lymphocytes # 1.6 Monocytes # 0.3 Eosinophils # 0.1 Basophils # 0.0 Nucleated Red Blood Cells # 0.0 Bedside Glucose 141 Medications Medications Current Medications Famotidine (Pepcid) 20 mg DAILY PO Last administered on 12/14/16 08:20; Admin Dose 20 MG; Start 12/13/16 at 09:00 Aspirin 81 mg 81 mg DAILY PO Last administered on 12/14/16 08:20; Admin Dose 81 MG; Start 12/13/16 at 09:00 Sodium Chloride (NS) 1,000 ml @ 100 mls/hr Q10H IV Last administered on 08:20; Admin Dose 100 MLS/HR; Start 12/13/16 at 02:00 Ondansetron HCl (Zofran Inj) 4 mg Q6H PRN IV NAUSEA AND/OR VOMITING; Start at 02:00 Acetaminophen (Tylenol Tab) 650 mg Q6H PRN PO PAIN AND OR ELEVATED TEMP; Start 12/13/16 at 02:00 Heparin Sodium (Porcine) (Heparin (5000 Units/0.5 ml)) 5,000 unit BID SC Last administered on 12/14/16 08:22; Admin Dose 5,000 UNIT; Start 12/13/16 at 09:00 Nitroglycerin 1 tab 1 tab Q5M PRN SL ANGINA; Start 12/13/16 at 02:00 Ceftriaxone Sodium (Rocephin) 50 ml @ 100 mls/hr Q24H IVPB Last administered on 12/13/16 21:08; Admin Dose 100 MLS/HR; Start 12/13/16 at 20:00 Ketorolac Tromethamine (Toradol) 15 mg Q8H PRN IV PAIN Last administered on 12:07; Admin Dose 15 MG; Start 12/13/16 at 11:00; Stop 12/16/16 at 10:59 Lidocaine (Lidoderm) 1 patch DAILY TD Last administered on 12/14/16 08:24; Admin Dose 1 PATCH; Start 12/13/16 at 11:00 Atorvastatin Calcium (Lipitor) 40 mg DAILY@21 PO ; Start 12/14/16 at 21:00 AISHWARYA JONES December 14, 2016 10:20
--- NOTE | 2016-12-14 10:38 | STROKE ---
Date/Time of Note Date/Time of Note DATE: 12/14/16 TIME: 10:27 Patient Information General Patient location: inpatient Arrival Date Age 61 Gender female Weight 78.6 kg POC Glucose Glucose Result Bedside Glucose - 72 Hours Test 12/14/16 08:47 Bedside Glucose 141mg/dL (70-220) Vital Signs Vital Signs Vital Signs Date Time Temp Pulse Resp B/P Pulse Ox O2 Delivery O2 Flow Rate FiO2 12/14/16 08:00 59 12/14/16 07:17 98.2 19 138/71 95 12/13/16 01:15 Room Air Patient History Current Medications Allergies: Coded Allergies: No Known Allergies (Verified Allergy, Unknown, 12/13/16) Labs Hematology Labs Hematology Test 12/14/16 06:47 White Blood Count 4.110^3/ul (4.8-10.8) Red Blood Count 4.5010^6/ul (4.20-5.40) Hemoglobin 13.3g/dl (12.0-16.0) Hematocrit 42.2% (37.0-47.0) Mean Corpuscular Volume 93.8fl (82.0-101.0) Mean Corpuscular Hemoglobin 29.6pg (29.0-33.0) Mean Corpuscular Hemoglobin Concent 31.5g/dl (32.0-37.0) Red Cell Distribution Width 13.2% (11.5-14.5) Platelet Count 16328^3/UL (140-415) Mean Platelet Volume 9.7fl (7.4-10.4) Neutrophils % 51.8% (39.0-77.0) Lymphocytes % 39.6% (15.0-51.0) Monocytes % 6.5% (0.0-11.0) Eosinophils % 1.7% (0.0-7.0) Basophils % 0.2% (0.0-2.0) Nucleated Red Blood Cells % 0.0/100WBC (0.0-0.0) Neutrophils # 2.110^3/ul (1.6-7.5) Lymphocytes # 1.610^3/ul (0.8-2.9) Monocytes # 0.310^3/ul (0.3-0.9) Eosinophils # 0.110^3/ul (0.0-0.5) Basophils # 0.010^3/ul (0.0-0.1) Nucleated Red Blood Cells # 0.010^3/ul (0.0-0.0) Chemistry Labs Chemistry Test 12/12/16 16:30 12/13/16 02:30 12/13/16 07:16 12/14/16 06:42 Lactic Acid Level 1.1mmol/L (0.5-2.2) Lipase 96U/L (23-300) Hemoglobin A1c 6.2% (0-5.9) Phosphorus Level 4.3mg/dl (2.5-4.9) Total Bilirubin 0.3mg/dl (0.2-1.3) Direct Bilirubin 0.00mg/dl (0.00-0.20) Indirect Bilirubin 0.3mg/dl (0-1.1) Aspartate Amino Transf (AST/SGOT) 18IU/L (15-46) Alanine Aminotransferase (ALT/SGPT) 30IU/L (13-69) Alkaline Phosphatase 45IU/L (42-121) Total Protein 6.7g/dl (6.1-8.1) Albumin 3.4g/dl (3.3-4.9) Globulin 3.30g/dl (1.3-3.2) Albumin/Globulin Ratio 1.03 Triglycerides Level 186mg/dl (0-149) Cholesterol Level 200mg/dl (100-200) LDL Cholesterol, Calculated 129mg/dl HDL Cholesterol 34mg/dl (35-98) Cholesterol/HDL Ratio 5.8RATIO Troponin I < 0.012ng/ml (0.00-0.12) Sodium Level 142mmol/L (135-144) Potassium Level 4.1mmol/L (3.5-5.1) Chloride Level 107mmol/L (97-110) Carbon Dioxide Level 29mmol/L (21-31) Anion Gap 10 (8-16) Blood Urea Nitrogen 18mg/dl (7-20) Creatinine 0.65mg/dl (0.44-1.00) Glucose Level 104mg/dl (70-220) Calcium Level 9.1mg/dl (8.4-10.2) Magnesium Level 2.0mg/dl (1.7-2.5) Test 5/25/17 08:47 Bedside Glucose 141mg/dL (70-220) History & Physical Patient History Notes Pt Hx Reviewed History of Present Illness 61yo F with h/o multiple meningiomas admitted for TIA now presents with episode of being unable to talk or respond to commands which lasted approximately 10 min then began improving. Patient's daughter reports the episode she initially presented with was similar, but after she began talking again, she was developing intermittent stiffness in her left arm associated with difficulty moving her left arm. Patient now feels her symptoms are improving. Review of Systems Constitutional: no symptoms reported EENTM: no symptoms reported Respiratory: no symptoms reported Cardiovascular: no symptoms reported Gastrointestinal: no symptoms reported Genitourinary: no symptoms reported Musculoskeletal: back pain Skin: no symptoms reported Psychiatric/Neurological: other (reports she is under significant stress) All Other Systems: Reviewed and Negative NIH Stroke Scale NIH Stroke Scale 1A - Level of Conciousness: 0 - Alert keenly [id number] LOC Questions: 0 - Answers both [id number] - LOC Commands: 0 - Performs both tasks2 - Best Gaze: 0 - Normal3 - Visual: 0 - No visual loss4 - Facial Palsy: 0 - No visual loss 5A - Motor Arm - Left: 0 - No [id number] - Motor Arm - Right: 0 - No [id number] - Motor Leg - Left: 0 - No [id number] - Motor Leg - Right: 0 - No drift7 - Limb Ataxia: 0 - Absent8 - Sensory: 0 - Normal9 - Best Language: 0 - No aphasia or normalDysarthria: 0 - [id number] - Extinction and inattentio: 0 - No abnormalityTotal Score: 0 Date/Time Recorded DATE: 12/14/16 TIME: 10:27 Submitted By Desiree Craig t-PA Imaging Review Imaging Reviewed: Yes Date/Time Imaging Reviewed DATE: 12/14/16 TIME: 10:27 Imaging Findings No acute changes t-PA Administration Recommendation: No Weight 78.6 kg Recommedation submitted by Desiree Craig Reason t-PA not Recommended NIHSS=0, not stroke Recommendations Impression Diagnosis complex partial seizures Recommendation 61yo F presents with 2 episodes of transient decreased responsiveness while awake. Neurological exam is now unremarkable. MRI Brain done earlier is notable for multiple meningiomas. I suspect patient is having recurrent complex partial seizures. I recommend patient undergo an EEG. I also reviewed various medication options and recommended Depakote ER 750mg PO BID to start tonight. Patient also complained of back pain, associated with samantha-spinal muscle tenderness. I agreed with Dr. Georges regarding trial of Flexeril, but recommended physical therapy and regular exercise. Post t-PA Order recommendation: Document q15 min vitals Diagnostic Labs: Lipid Proile CMP CBC w/Diff Coags Therapy: Physical Therapy Speech Therapy Occupational Therapy Misc. Recommendations: Bedside Swallow Evaluation Pnumatic Compression Devices DESIREE CRAIG December 14, 2016 10:37
--- NOTE | 2016-12-14 17:39 | RADRPT ---
Vent Rate: 82 bpm RR Interval: 0 msec MI Interval: 146 msec QRS Duration: 98 msec QT Interval: 408 msec QTC Interval: 476 msec P-R-T [place]: 59 - 63 - 58 degrees Normal sinus rhythm Cannot rule out Inferior infarct , age undetermined Cannot rule out Anterior infarct , age undetermined Abnormal ECG Electronically Signed By: Manuel Hernandez [id number]
[2016-12-14] MEDS: CEFTRIAXONE 1 GM/50 ML (PMX) 50 ML IVPB SCH (20:34)
[2016-12-14] MEDS: ATORVASTATIN 40 MG TAB PO SCH (20:35)
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
[2016-12-15] VITALS (11 sets, daily range): BP systolic 113–143; BP diastolic 58–71; PULSE 54–66; RESP 19–20
[2016-12-15] MEDS: LEVETIRACETAM 500 MG TAB PO SCH ×2 (00:24→08:33)
--- NOTE | 2016-12-15 00:41 | SP ---
DATE OF PROCEDURE: 12/14/2016 PROCEDURE: Electroencephalogram. INDICATION: A 61-year-old lady with transient encephalopathy, small meningiomas on the left side. DESCRIPTION OF PROCEDURE: Routine EEG was recorded digitally. [id number] and vitpw-as-jbr neo ages were recorded and reviewed. All impedances were measured and recorded. Cap electrodes were pl aced in accordance with International 10-20 system of electrode placement. FINDINGS: Symmetrically distributed background activity of low to medium amplitude of approximately 8 cycles per second was seen throughout the recording. Eye opening attenuates the background. Morris tic stimulation produces no driving. Hyperventilation elicits no epileptiform activity. No definit e epileptiform transients were seen. No signs of ongoing electrographic seizures or lateralized slo wing. IMPRESSION: Normal study. Please correlate clinically. Dictated By: SE GATES/DOLORES Conf#: [id number] DID#: [id number]
[2016-12-15] MEDS: SOD CHLORIDE 0.9% 1,000 ML IV SCH ×2 (04:00→05:31)
[2016-12-15 06:36] LABS: ADD SCAN DIFF NO
[2016-12-15 06:41] LABS: BASOPHILS % 0.3 % (0.0-2.0); EOSINOPHILS # 0.1 10^3/ul (0.0-0.5); EOSINOPHILS % 2.7 % (0.0-7.0); HEMATOCRIT 37.3 % (37.0-47.0); HEMOGLOBIN 12.2 g/dl (12.0-16.0); LYMPHOCYTES # 1.8 10^3/ul (0.8-2.9); LYMPHOCYTES % 47.6 % (15.0-51.0); MEAN CORPUSCULAR HEMOGLOBIN 29.9 pg (29.0-33.0); MEAN CORPUSCULAR HGB CONC 32.7 g/dl (32.0-37.0); MEAN CORPUSCULAR VOLUME 91.4 fl (82.0-101.0); MEAN PLATELET VOLUME 9.4 fl (7.4-10.4); MONOCYTE # 0.3 10^3/ul (0.3-0.9); MONOCYTES % 6.9 % (0.0-11.0); NEUTROPHIL # 1.6 10^3/ul (1.6-7.5); NEUTROPHILS % 42.5 % (39.0-77.0); PLATELET COUNT 174 10^3/UL (140-415); RED BLOOD COUNT 4.08 10^6/ul (4.20-5.40); RED CELL DISTRIBUTION WIDTH 12.8 % (11.5-14.5); WHITE BLOOD COUNT 3.8 10^3/ul (4.8-10.8)
[2016-12-15 07:04] LABS: CALCIUM 8.8 mg/dl (8.4-10.2); CREATININE 0.65 mg/dl (0.44-1.00); POTASSIUM 3.7 mmol/L (3.5-5.1)
[2016-12-15] MEDS: KETOROLAC 15 MG INJ IV PRN (08:29)
[2016-12-15] MEDS: HEPARIN 5,000 UNIT/0.5 ML VIAL SC SCH ×2 (08:33→20:28)
[2016-12-15] MEDS: ASPIRIN 81 MG TAB PO SCH (08:33)
[2016-12-15] MEDS: FAMOTIDINE 20 MG TAB PO SCH (08:33)
[2016-12-15] MEDS: LIDOCAINE 5% PATCH TD SCH (08:33)
--- NOTE | 2016-12-15 12:20 | PN ---
Date/Time of Note Date/Time of Note DATE: 12/15/16 TIME: 12:18 Assessment/Plan VTE Prophylaxis VTE Prophylaxis Intervention: heparin Lines/Catheters IV Catheter Type (from Nrsg): Peripheral IV Assessment/Plan Assessment/Plan Assessment: 1. Acute encephalopathy 2. Urinary tract infection 3. Dyslipidemia 4. Prediabetes 5. Enlarged thyroid gland on imaging 6. Focal paraspinal back pain likely secondary to musculoskeletal sprain 7. s/p Code stroke called yesterday - possible seizures Plan: pt had a code stroke called for speech difficulty, started no keppra 500mg pO BID for possible seizure neurolgoy following- appreciate help PT evaluation and treatment heparin for DVT prophylaxis d/c IV fluids Subjective 24 Hr Interval Summary Free Text/Dictation no acute events overnight, more calm today, BP stable Exam/Review of Systems Vital Signs Vitals Vital Signs Date Time Temp Pulse Resp B/P Pulse Ox O2 Delivery O2 Flow Rate FiO2 12/15/16 12:05 62 12/15/16 07:22 99.0 20 143/71 98 12/13/16 01:15 Room Air Intake and Output 12/14/16 12/14/16 12/15/16 15:00 23:00 07:00 Intake Total 1250 ml 1500 ml Balance 1250 ml 1500 ml Exam Constitutional: other (Lethargic), Head: atraumatic, normocephalic Eyes: PERRL, ENMT: mucosa pink and moist Neck: non-tender, supple Respiratory: clear to auscultation, No labored breathing Cardiovascular: regular rate and rhythm, No murmurs/extra sounds Gastrointestinal: bowel sounds, non-tender, soft Extremities: No edema Neurological: lethargic, No focal weakness Results Result Diagram: 12/15/16 0615 12/15/1615 Results 24 hrs Laboratory Tests Test 12/15/16 06:15 White Blood Count 3.8 L Red Blood Count 4.08 L Hemoglobin 12.2 Hematocrit 37.3 Mean Corpuscular Volume 91.4 Mean Corpuscular Hemoglobin 29.9 Mean Corpuscular Hemoglobin Concent 32.7 Red Cell Distribution Width 12.8 Platelet Count 174 Mean Platelet Volume 9.4 Neutrophils % 42.5 Lymphocytes % 47.6 Monocytes % 6.9 Eosinophils % 2.7 Basophils % 0.3 Nucleated Red Blood Cells % 0.0 Neutrophils # 1.6 Lymphocytes # 1.8 Monocytes # 0.3 Eosinophils # 0.1 Basophils # 0.0 Nucleated Red Blood Cells # 0.0 Sodium Level 141 Potassium Level 3.7 Chloride Level 111 H Carbon Dioxide Level 25 Anion Gap 9 Blood Urea Nitrogen 12 Creatinine 0.65 Glucose Level 98 Calcium Level 8.8 Medications Medications Current Medications Famotidine (Pepcid) 20 mg DAILY PO Last administered on 12/15/16 08:33; Admin Dose 20 MG; Start 12/13/16 at 09:00 Aspirin 81 mg 81 mg DAILY PO Last administered on 12/15/16 08:33; Admin Dose 81 MG; Start 12/13/16 at 09:00 Sodium Chloride (NS) 1,000 ml @ 100 mls/hr Q10H IV Last administered on 05:31; Admin Dose 100 MLS/HR; Start 12/13/16 at 02:00 Ondansetron HCl (Zofran Inj) 4 mg Q6H PRN IV NAUSEA AND/OR VOMITING; Start at 02:00 Acetaminophen (Tylenol Tab) 650 mg Q6H PRN PO PAIN AND OR ELEVATED TEMP Last administered on 12/14/16 21:41; Admin Dose 650 MG; Start 12/13/16 at 02:00 Heparin Sodium (Porcine) (Heparin (5000 Units/0.5 ml)) 5,000 unit BID SC Last administered on 12/15/16 08:33; Admin Dose 5,000 UNIT; Start 12/13/16 at 09:00 Nitroglycerin 1 tab 1 tab Q5M PRN SL ANGINA; Start 12/13/16 at 02:00 Ceftriaxone Sodium (Rocephin) 50 ml @ 100 mls/hr Q24H IVPB Last administered on 12/14/16 20:34; Admin Dose 100 MLS/HR; Start 12/13/16 at 20:00 Ketorolac Tromethamine (Toradol) 15 mg Q8H PRN IV PAIN Last administered on 08:29; Admin Dose 15 MG; Start 12/13/16 at 11:00; Stop 12/16/16 at 10:59 Lidocaine (Lidoderm) 1 patch DAILY TD Last administered on 12/15/16 08:33; Admin Dose 1 PATCH; Start 12/13/16 at 11:00 Atorvastatin Calcium (Lipitor) 40 mg DAILY@21 PO Last administered on 20:35; Admin Dose 40 MG; Start 12/14/16 at 21:00 Levetiracetam (Keppra) 500 mg BID PO Last administered on 12/15/16 08:33; Admin Dose 500 MG; Start 12/15/16 at 00:00 MILLI LOTT MD December 15, 2016 12:20
--- NOTE | 2016-12-15 12:40 | CONS ---
Date/Time of Note Date/Time of Note DATE: 12/15/16 TIME: 12:35 Consult Date/Type/Reason Admit Date/Time December 12, 2016 at 19:49 Type of Consultation: neurology Subjective no events. Started on keppra last nighty. per daughter, more mood swings; daughter wants to use depakote er as suggested by teleneurogist. Also per daughter at times pt had episodes of staring, decreased responsiveness in the past Objective Vital Signs Date Time Temp Pulse Resp B/P Pulse Ox O2 Delivery O2 Flow Rate FiO2 12/15/16 12:05 62 12/15/16 07:22 99.0 20 143/71 98 12/13/16 01:15 Room Air Intake and Output 12/14/16 12/14/16 12/15/16 15:00 23:00 07:00 Intake Total 1250 ml 1500 ml Balance 1250 ml 1500 ml Results/Medications Result Diagram: 12/15/16 0615 12/15/16 0615 Results 24 hrs Laboratory Tests Test 12/15/16 06:15 White Blood Count 3.8 L Red Blood Count 4.08 L Hemoglobin 12.2 Hematocrit 37.3 Mean Corpuscular Volume 91.4 Mean Corpuscular Hemoglobin 29.9 Mean Corpuscular Hemoglobin Concent 32.7 Red Cell Distribution Width 12.8 Platelet Count 174 Mean Platelet Volume 9.4 Neutrophils % 42.5 Lymphocytes % 47.6 Monocytes % 6.9 Eosinophils % 2.7 Basophils % 0.3 Nucleated Red Blood Cells % 0.0 Neutrophils # 1.6 Lymphocytes # 1.8 Monocytes # 0.3 Eosinophils # 0.1 Basophils # 0.0 Nucleated Red Blood Cells # 0.0 Sodium Level 141 Potassium Level 3.7 Chloride Level 111 H Carbon Dioxide Level 25 Anion Gap 9 Blood Urea Nitrogen 12 Creatinine 0.65 Glucose Level 98 Calcium Level 8.8 Medications Current Medications Famotidine (Pepcid) 20 mg DAILY PO Last administered on 12/15/16 08:33; Admin Dose 20 MG; Start 12/13/16 at 09:00 Aspirin (Aspirin) 81 mg DAILY PO Last administered on 12/15/16 08:33; Admin Dose 81 MG; Start 12/13/16 at 09:00 Ondansetron HCl (Zofran Inj) 4 mg Q6H PRN IV NAUSEA AND/OR VOMITING; Start at 02:00 Acetaminophen (Tylenol Tab) 650 mg Q6H PRN PO PAIN AND OR ELEVATED TEMP Last administered on 12/14/16 21:41; Admin Dose 650 MG; Start 12/13/16 at 02:00 Heparin Sodium (Porcine) (Heparin (5000 Units/0.5 ml)) 5,000 unit BID SC Last administered on 12/15/16 08:33; Admin Dose 5,000 UNIT; Start 12/13/16 at 09:00 Nitroglycerin 1 tab 1 tab Q5M PRN SL ANGINA; Start 12/13/16 at 02:00 Ceftriaxone Sodium (Rocephin) 50 ml @ 100 mls/hr Q24H IVPB Last administered on 12/14/16 20:34; Admin Dose 100 MLS/HR; Start 12/13/16 at 20:00 Ketorolac Tromethamine (Toradol) 15 mg Q8H PRN IV PAIN Last administered on 08:29; Admin Dose 15 MG; Start 12/13/16 at 11:00; Stop 12/16/16 at 10:59 Lidocaine (Lidoderm) 1 patch DAILY TD Last administered on 12/15/16 08:33; Admin Dose 1 PATCH; Start 12/13/16 at 11:00 Atorvastatin Calcium (Lipitor) 40 mg DAILY@21 PO Last administered on 20:35; Admin Dose 40 MG; Start 12/14/16 at 21:00 Levetiracetam (Keppra) 500 mg BID PO Last administered on 12/15/16 08:33; Admin Dose 500 MG; Start 12/15/16 at 00:00 Assessment/Plan Chief Complaint/Hosp Course PHYSICAL EXAMINATION: GENERAL: Not in acute distress, lying in bed. HEENT: Normocephalic, atraumatic head. NECK: No carotid bruits. No thyromegaly. LUNGS: Clear to auscultation bilaterally. CARDIAC: Normal cardiac rhythm and sounds. ABDOMEN: Soft, nontender. EXTREMITIES: No cyanosis, clubbing or edema. NEUROLOGIC: She is AAOx3, fluent speech. Normal visual watts. Pupils reactive from 4 to 2 mm bilaterally. Extraocular movements intact. Corneal reflexes present bilaterally. Symmetrical face. Normal strength and sensations. The patient moves all extremities symmetrically 5/5. Deep tendon reflexes 2+ upper extremities, absent in lower extremities. Downgoing toes bilaterally. IMPRESSION: 1. Possible complex partial seizures. Less likely transient ischemic attack, or complex migraine. Chronic migraines Same ASA, lipitor, keep normotensive euglycemic. Dc keppra 500 bid. Start Depakote er 500 mg 2 tab daily x 1 week, then 3 tab daily. Out pt f/u 2-4 weeks. If no events, ok to d/c tomorrow. 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 Problems: SE KAISER MD December 15, 2016 12:40
[2016-12-15] MEDS: DIVALPROEX (ER) 500 MG TAB PO SCH (18:27)
[2016-12-15] MEDS: CEFTRIAXONE 1 GM/50 ML (PMX) 50 ML IVPB SCH (20:27)
[2016-12-15] MEDS: ATORVASTATIN 40 MG TAB PO SCH (20:27)
[2016-12-16] VITALS: PULSE 72
[2016-12-16 03:50] VITALS: BP 124/69; RESP 20
[2016-12-16 04:00] VITALS: PULSE 66
[2016-12-16 06:32] LABS: ADD SCAN DIFF NO
[2016-12-16 06:45] LABS: BASOPHILS % 0.4 % (0.0-2.0); EOSINOPHILS # 0.1 10^3/ul (0.0-0.5); EOSINOPHILS % 1.9 % (0.0-7.0); HEMATOCRIT 37.6 % (37.0-47.0); HEMOGLOBIN 12.3 g/dl (12.0-16.0); LYMPHOCYTES # 2.2 10^3/ul (0.8-2.9); LYMPHOCYTES % 38.4 % (15.0-51.0); MEAN CORPUSCULAR HEMOGLOBIN 29.8 pg (29.0-33.0); MEAN CORPUSCULAR HGB CONC 32.7 g/dl (32.0-37.0); MEAN PLATELET VOLUME 9.5 fl (7.4-10.4); MONOCYTE # 0.4 10^3/ul (0.3-0.9); MONOCYTES % 6.2 % (0.0-11.0); NEUTROPHILS % 52.9 % (39.0-77.0); PLATELET COUNT 181 10^3/UL (140-415); RED BLOOD COUNT 4.13 10^6/ul (4.20-5.40); RED CELL DISTRIBUTION WIDTH 12.8 % (11.5-14.5); WHITE BLOOD COUNT 5.7 10^3/ul (4.8-10.8)
[2016-12-16 07:15] LABS: POTASSIUM 3.4 mmol/L (3.5-5.1)
[2016-12-16 07:17] LABS: CREATININE 0.61 mg/dl (0.44-1.00)
[2016-12-16 07:42] VITALS: BP 134/68; RESP 18
[2016-12-16] MEDS: FAMOTIDINE 20 MG TAB PO SCH (08:06)
[2016-12-16] MEDS: DIVALPROEX (ER) 500 MG TAB PO SCH (08:06)
[2016-12-16] MEDS: ASPIRIN 81 MG TAB PO SCH (08:06)
[2016-12-16] MEDS: LIDOCAINE 5% PATCH TD SCH (08:06)
[2016-12-16] MEDS: HEPARIN 5,000 UNIT/0.5 ML VIAL SC SCH (08:17)
[2016-12-16 08:37] VITALS: PULSE 58
[2016-12-16 10:59] VITALS: BP 121/59; RESP 20
[2016-12-16] MEDS ORDERED: POTASSIUM CHLORIDE (SR) 20 MEQ TAB PO STA (11:00)
[2016-12-16] MEDS ORDERED: DIVA500T15 PO (11:02)
--- NOTE | 2016-12-16 11:04 | PDOCDIS ---
Discharge Instructions CONDITION Patient Condition: Good HOME CARE INSTRUCTIONS: Diet Instructions: Regular ACTIVITY: Activity Restrictions: Do not Drive FOLLOW UP/APPOINTMENTS Appointments F/U WITH YOUR PCP IN 1-2 WEEKS, F/U WITH A NEUROLOGIST ARCENIO GOMEZ December 16, 2016 11:03
--- NOTE | 2016-12-17 06:30 | DS ---
DATE OF ADMISSION: 12/12/2016 DATE OF DISCHARGE: 12/16/2016 DISCHARGE DIAGNOSES: 1. Acute encephalopathy, likely secondary to a complex partial seizure. The patient was started on Depakote and discharged with Depakote. Mentation is now stabilized. EEG showed a normal study. 2. Urinary tract infection status post Rocephin x3 days. 3. Prediabetes. 4. Back pain secondary musculoskeletal sprain. HOSPITAL COURSE: The patient is a 61-year-old female with history of meningioma, dyslipidemia. The patient presents to with left upper extremity weakness, numbness, as well as chest pain. The patie nt was felt initially to have a TIA. The patient was diagnosed with a UTI. Received Rocephin. The patient's troponins were negative x3. A1c was checked and it was 6.2. LDL was 129. Urine culture showed mixed gram-positive organisms. The UA did suggest a UTI. The patient did have a code strok e called for speech difficulty during the hospitalization. She was started on Keppra. The patient was seen by neurology. An EEG was done that was normal. Neurology recommended to discharge Keppra and start Depakote for possible complex partial seizures, TIA was felt to be less likely. Recommend ation was for patient not to drive. The patient's mentation did stabilize. She had no further epis odes of seizures. She was felt to be stable for discharge. On the day of discharge, the patient's vitals, labs, physical exam were stable. She had no acute complaints. Questions answered. CONDITION ON DISCHARGE: Stable. DISPOSITION: To home. MEDICATIONS: The patient was given a prescription for Depakote 1000 mg daily for a week and then e is to increase her Depakote to ____ mg daily after 1 week. The patient is to continue her other h ome medications. The patient is also to take aspirin 81 mg daily. FOLLOWUP: The patient is to follow up with her PCP in 1 to 2 weeks. Greater than 30 minutes were spent coordinating discharge of the patient. Dictated By: ARCENIO LEYVA/NTS Conf#: [id number] DID#: [id number]
== END 2016-12-16 12:00 | disposition home or self-care (01) | DRG 101 ==
LOC: E/R 12:54 → TEL 19:49
PROVIDERS: ADMIT Internal Medicine; ATTEND Internal Medicine
DX: G40.89 Other seizures (principal); N39.0 Urinary tract infection, site not specified; R73.03 Prediabetes; R07.9 Chest pain, unspecified; E04.9 Nontoxic goiter, unspecified; D32.0 Benign neoplasm of cerebral meninges; S23.3XXA Sprain of ligaments of thoracic spine, initial encounter; X58.XXXA Exposure to other specified factors, initial encounter; Z91.81 History of falling
CPT/HCPCS: 36415; 70450; 70496; 70498; 70551; 71010; 80048; 80053; 80061; 81001; 82962; 83036; 83605; 83690; 83735; 84100; 84484; 85025; 85610; 85730; 87086; 92610; 93005; 93306; 93880; 95819; 96374; 96375; 97110; 97116; 97162; 97530; J0696; J1644; J1885; J2060; J2270; J2405; J7030; Q9967

== ENCOUNTER 2017-03-27 18:34 | Emergency (ER) | payer OTHER ==
[~2017-03-27] VITALS: Ht 157.5 cm; Wt 79.5 kg
[~2017-03-27 18:34] MED LIST changes: -CYCL5TAB PO; +DIVA500T15 PO; +FAMO20TA18 PO; +IBUP200C11 PO; +ROSU5TAB5 PO
[2017-03-27 18:47] VITALS: Ht 157.5 cm; Wt 79.5 kg
--- NOTE | 2017-03-27 21:32 | ERD ---
ER Documentation Chief Complaint Date/Time DATE: 03/27/17 TIME: 21:29 Chief Complaint VB since sunday HPI 61-year-old female presents to emergency department for evaluation of labial cyst seen 3 days ago by PMD and started on ABX, pt reports bleeding x 4 days. pt has not seen TURPENTINE DISTILLER . went to [facility] told that they do not treat labial cyst. pt has no paper work from hospital ROS All systems reviewed and are negative except as per history of present illness. Medications Home Meds Active Scripts Divalproex Sodium* (Divalproex ER*) 500 Mg Tab.er.24h, 1000 MG PO DAILY, #60 1 Refill Prov:ARCENIO GOMEZ 12/16/16 Reported Medications Famotidine* (Famotidine*) 20 Mg Tablet, 20 MG PO DAILY, #30 TAB 12/13/16 Ibuprofen* (Advil*) 200 Mg Capsule, 200 MG PO Q6H Y for PAIN, CAP 12/13/16 Rosuvastatin Calcium* (Crestor*) 5 Mg Tablet, 5 MG PO QHS, #30 TAB 12/13/16 Allergies Allergies: Coded Allergies: No Known Allergies (Verified Allergy, Unknown, 12/13/16) PMhx/Soc History of Surgery: Yes (appendectomy, left knee replacement, left breat tumor removal) Anesthesia Reaction: No Hx Neurological Disorder: Yes (brain tumor) Hx Respiratory Disorders: No Hx Cardiac Disorders: No Hx Psychiatric Problems: No Hx Miscellaneous Medical Probl: Yes (L TKR,BRAIN TUMOR,HIGH CHOLESTEROL, APPENDECTOMY) Hx Alcohol Use: No Hx Substance Use: No Hx Tobacco Use: No Smoking Status: Current every day smoker Physical Exam Vitals Stable, triage notes reviewed Physical Exam Const: Nourished well-appearing well-hydrated no acute distress Head: Atraumatic Eyes: Normal Conjunctiva ENT: Normal External Ears, Nose and Mouth. Neck: Full range of motion..~ No meningismus. 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 Inner aspect of right labia majora presents with a soft bleeding papule. No evidence of abscess or Bartholin's cyst Skin: No petechiae or rashes Ext: No cyanosis, or edema Neur: Awake and alert Psych: Normal Mood and Affect Results 24 hrs Current Medications Medications (Trade) Dose Ordered Sig/Ben Route PRN Reason Start Time Stop Time Status Last Admin Dose Admin Lidocaine (Lmx 4% Plus) 1 applic ONCE ONCE TOP 03/27/17 22:00 03/27/17 22:01 DC 03/27/17 22:03 Procedures/MDM This pleasant 61-year-old female presents to emergency department for evaluation of a bleeding lesion in her vagina. Highly suspicion for a Bartholin 's cyst. Physical exam shows a right inner labial minora bleeding papule. This case discussed with supervising physician Yasmin , patient given samantha-pad instructed to follow-up with gynecology Dr.Reiche rogers. Instructed to continue her antibiotic as prescribed by primary physician, schedule appointment with synthetic chemist tomorrow. Patient is stable with no new complaints during ER course, clinically there is no current evidence to suggest PID, abscess, cellulitis, or any other emergent condition appearing to require further evaluation or hospitalization. I feel the patient is stable for discharge at this time. I have discussed results, examination findings, the treatment plan with the patient and family present prior to discharge. Indications for emergent reevaluation, side effects of medication were also discussed. All questions were answered. Patient verbalizes understanding and agrees with plan of care. Departure Diagnosis: Primary Impression: Vaginal lesion Condition: Good Additional Instructions: Thank you for for coming to the [facility] for your care today. Please ask your nurse or provider if you have questions about your care today and do not leave until all your questions have been answered. Please use any medications given as directed and follow-up with your doctor (or the doctor you were referred to) in the next 2-3 days. If you do not have a primary care doctor you may follow up at the [facility] (listed below). You may also use motrin and tylenol as needed for fever and/or pain unless instructed otherwise by your provider or nurse. Indications for more urgent follow-up have been discussed, but you may return to the Emergency Department at ANY time for any worrisome or worsening symptoms. If you have abdominal pain, please know that no test or exam you received is perfect and you should follow up within 8 hours for continued pain. If you had any imaging studies today, such as an X-Ray or CT Scan, these studies will be reviewed later by a radiologist. You will be called if there are important findings that were not identified today, so make sure the contact information you provided at registration is correct. If you received any narcotic pain control medicine today, such as Vicodin, Morphine or Dilaudid, your coordination and judgment may be affected for a number of hours. Please do not drive or operate heavy machinery, and you may want someone to assist you at home. If you were given a prescription for narcotic medication, be aware that it is very addictive- use sparingly and only if necessary. AVIS HERMAN Mar 27, 2017 21:32
[2017-03-27] MEDS ORDERED: LIDOCAINE 4% CR TOP ONE (22:00)
[2017-03-27 23:03] VITALS: BP 114/78; PULSE 75; RESP 16
== END 2017-03-27 23:04 | disposition home or self-care (01) ==
LOC: FTE 18:34
DX: N89.8 Other specified noninflammatory disorders of vagina (principal); F17.210 Nicotine dependence, cigarettes, uncomplicated; Z96.652 Presence of left artificial knee joint
CPT/HCPCS: Z7502; Z7610; 99282

== ENCOUNTER 2018-07-25 12:13 | Emergency (ER) | payer OTHER, MEDICARE ==
[~2018-07-25] VITALS: Ht 170.2 cm; Wt 65.0 kg
[~2018-07-25 12:13] MED LIST changes: +CRES5 PO; -ROSU5TAB5 PO
[2018-07-25 12:16] VITALS: BP 187/79; PULSE 79; RESP 17; Ht 170.2 cm; Wt 65.0 kg
[2018-07-25] MEDS ORDERED: LORAZEPAM 1 MG TAB PO ONE (13:30)
[2018-07-25] MEDS ORDERED: LORA-441 PO (15:19)
--- NOTE | 2018-07-25 15:46 | ERD ---
ER Documentation Chief Complaint Chief Complaint PT WAS DRIVING, FELT ANXIOUS, PULLED OVER, CALLED 911, HX ANXIETY HPI 63-year-old female presenting with anxiety and chest tightness times 1 day. Patient states this happened many years ago and resolved on its own. She states this time she has some chest tightness and troubles breathing that came on spontaneously. She denies any tearing chest pain. Denies any arm numbness. Has not taken medications for symptoms. Patient was driving when this started. Denies medical problems. NKDA. Surgical history left finger surgery. Social history denies ROS All systems reviewed and are negative except as per history of present illness. Medications Home Meds Active Scripts Lorazepam* (Ativan*) 0.5 Mg Tablet, 0.5 MG PO Q8, #10 TAB Prov:ADDIS ARMENDARIZ PA-C 07/25/18 Divalproex Sodium* (Divalproex ER*) 500 Mg Tab.er.24h, 1000 MG PO DAILY, #60 1 Refill Prov:ARCENIO GOMEZ 12/16/16 Reported Medications Famotidine* (Famotidine*) 20 Mg Tablet, 20 MG PO DAILY, #30 TAB 12/13/16 Ibuprofen* (Advil*) 200 Mg Capsule, 200 MG PO Q6H PRN for PAIN, CAP 12/13/16 Rosuvastatin Calcium* (Crestor*) 5 Mg Tablet, 5 MG PO QHS, #30 TAB 12/13/16 Allergies Allergies: Coded Allergies: No Known Allergies (Verified Allergy, Unknown, 07/25/18) PMhx/Soc History of Surgery: Yes (appendectomy, left knee replacement, left breat tumor removal) Anesthesia Reaction: No Hx Neurological Disorder: Yes (brain tumor) Hx Respiratory Disorders: No Hx Cardiac Disorders: No Hx Psychiatric Problems: No Hx Miscellaneous Medical Probl: Yes (L TKR,BRAIN TUMOR,HIGH CHOLESTEROL,APPENDECTOMY) Hx Alcohol Use: No Hx Substance Use: No Hx Tobacco Use: No Smoking Status: Never smoker FmHx Family History: No diabetes, No coronary disease, No other Physical Exam Vitals Vital Signs Date Temp Pulse Resp B/P (MAP) Pulse Ox O2 O2 Flow FiO2 Time Delivery Rate 07/25/18 98.2 79 17 187/79 99 12:16 (115) Physical Exam GENERAL: The patient is well-appearing, well-nourished, in no acute distress HEENT: Atraumatic. Conjunctivae are pink. Pupils equal, round, and reactive to light. There is no scleral icterus. Tympanic membranes clear bilaterally. Oropharynx clear. CHEST: Clear to auscultation bilaterally. There are no rales, wheezes or rhonchi. HEART: Regular rate and rhythm. No murmurs, clicks, rubs or gallops. No S3 or S4. Result Diagram: 07/25/18 1421 07/25/18 1421 Results 24 hrs Laboratory Tests Test 07/25/18 14:21 White Blood Count 6.6 10^3/ul Red Blood Count 4.29 10^6/ul Hemoglobin 12.8 g/dl Hematocrit 39.4 % Mean Corpuscular Volume 91.8 fl Mean Corpuscular Hemoglobin 29.8 pg Mean Corpuscular Hemoglobin Concent 32.5 g/dl Red Cell Distribution Width 13.0 % Platelet Count 202 10^3/UL Mean Platelet Volume 9.3 fl Immature Granulocytes % 0.200 % Neutrophils % 64.9 % Lymphocytes % 27.9 % Monocytes % 5.9 % Eosinophils % 0.8 % Basophils % 0.3 % Nucleated Red Blood Cells % 0.0 /100WBC Immature Granulocytes # 0.010 10^3/ul Neutrophils # 4.3 10^3/ul Lymphocytes # 1.9 10^3/ul Monocytes # 0.4 10^3/ul Eosinophils # 0.1 10^3/ul Basophils # 0.0 10^3/ul Nucleated Red Blood Cells # 0.0 10^3/ul Sodium Level 144 mmol/L Potassium Level 3.9 mmol/L Chloride Level 104 mmol/L Carbon Dioxide Level 27 mmol/L Anion Gap 13 Blood Urea Nitrogen 16 mg/dl Creatinine 0.55 mg/dl Est Glomerular Filtrat Rate mL/min > 60 mL/min Glucose Level 101 mg/dl Calcium Level 9.3 mg/dl Total Bilirubin 0.5 mg/dl Direct Bilirubin 0.00 mg/dl Indirect Bilirubin 0.5 mg/dl Aspartate Amino Transf (AST/SGOT) 25 IU/L Alanine Aminotransferase (ALT/SGPT) 32 IU/L Alkaline Phosphatase 63 IU/L Troponin I < 0.012 ng/ml Total Protein 7.7 g/dl Albumin 4.5 g/dl Globulin 3.20 g/dl Albumin/Globulin Ratio 1.40 Current Medications Medications Dose Sig/Ben Start Time Status Last (Trade) Ordered Route PRN Stop Time Admin Dose Reason Admin Lorazepam 1 mg ONCE ONCE 07/25/18 DC 07/25/18 (Ativan) PO 13:30 07/25/18 13:38 13:31 Procedures/MDM EKG: Rate/Rhythm: 67 bpm . normal Sinus Rhythm QRS, ST, T-waves: No changes consistent w/ acute ischemia Impression: No evidence of ischemia or arrhythmia DIAGNOSTIC IMAGING REPORT Patient: KAREN KENDALL : 1955 Age: 63 Sex: F MR #: [id number] DOS: 07/25/18 1325 Ordering MD: RALPH ARMENDARIZ PA-C Location: [facility] Room/Bed: PROCEDURE: XR Chest. CLINICAL INDICATION: Shortness of breath. Chest pain TECHNIQUE: Single AP portable chest. COMPARISON: No prior Chest x-ray FINDINGS: The cardiomediastinal silhouette is within normal limits of size. The lungs are clear without pleural effusion or focal consolidation. No pneumothorax. The osseous structures and soft tissues are unremarkable. IMPRESSION: 1. No evidence for active cardiopulmonary disease. MDM: 63-year-old female presenting with anxiety and chest tightness. Patient's chest x-ray in blood work is within normal limits. Patient symptoms are likely anxious in nature and she will be treated with supportive medications. I have low suspicion for cardiac or pulmonary emergency. Patient is discharged with stricter precautions and told to follow-up with primary care within 1-2 days of close evaluation. All questions answered at discharge Departure Diagnosis: Primary Impression: Anxiety Condition: Stable Patient Instructions: Anxiety Reaction Referrals: NOA SAMSON (PCP) Additional Instructions: FOLLOW UP WITH YOUR PRIMARY CARE PHYSICIAN TOMORROW.Return to this facility if you are not improving as expected. ADDIS ARMENDARIZ PA-C Jul 25, 2018 15:46
== END 2018-07-25 16:13 | disposition home or self-care (01) ==
LOC: FTE 12:13
DX: F41.9 Anxiety disorder, unspecified (principal); R07.9 Chest pain, unspecified; Z96.652 Presence of left artificial knee joint
CPT/HCPCS: 36415; 71045; 80053; 84484; 85025; 85378; 93005; Z7502; Z7610

== ENCOUNTER 2019-02-13 10:38 | Emergency (ER) | payer MEDICARE, OTHER ==
[~2019-02-13] VITALS: Ht 157.5 cm; Wt 76.6 kg
[~2019-02-13 10:38] MED LIST changes: +LORA-441 PO; +LORA1TAB PO
[2019-02-13 10:40] VITALS: Ht 157.5 cm; Wt 76.6 kg
--- NOTE | 2019-02-13 11:32 | ERD ---
ER Documentation Chief Complaint Chief Complaint feels anxious HPI 63-year-old female presents with complaint of shortness of breath. States that she feels anxious as well. Started this morning. Patient denies palpitations, malignancy, recent travel, dyspnea, leg swelling, leg erythema, fever, night sweats, weight loss, fatigue, hemoptysis, wheezing, dyspnea, pleuritic chest pain, or orthopnea. ROS All systems reviewed and are negative except as per history of present illness. Medications Home Meds Active Scripts Lorazepam* (Lorazepam*) 1 Mg Tablet, 1 MG PO Q8H PRN for ANXIETY, #10 TAB Prov:ABIGAIL SOLORZANO 02/13/19 Lorazepam* (Ativan*) 0.5 Mg Tablet, 0.5 MG PO Q8, #10 TAB Prov:ADDIS ARMENDARIZ PA-C 07/25/18 Divalproex Sodium* (Divalproex ER*) 500 Mg Tab.er.24h, 1000 MG PO DAILY, #60 1 Refill Prov:ARCENIO GOMEZ 12/16/16 Reported Medications Famotidine* (Famotidine*) 20 Mg Tablet, 20 MG PO DAILY, #30 TAB 12/13/16 Ibuprofen* (Advil*) 200 Mg Capsule, 200 MG PO Q6H PRN for PAIN, CAP 12/13/16 Rosuvastatin Calcium* (Crestor*) 5 Mg Tablet, 5 MG PO QHS, #30 TAB 12/13/16 Allergies Allergies: Coded Allergies: No Known Allergies (Verified Allergy, Unknown, 07/25/18) PMhx/Soc History of Surgery: Yes (appendectomy, left knee replacement, left breat tumor removal) Anesthesia Reaction: No Hx Neurological Disorder: Yes (brain tumor) Hx Respiratory Disorders: No Hx Cardiac Disorders: No Hx Psychiatric Problems: No Hx Miscellaneous Medical Probl: Yes (L TKR,BRAIN TUMOR,HIGH CHOLESTEROL,APPENDECTOMY) Hx Alcohol Use: No Hx Substance Use: No Hx Tobacco Use: No Smoking Status: Never smoker FmHx Family History: No diabetes, No coronary disease, No other Physical Exam Vitals Vital Signs Date Temp Pulse Resp B/P (MAP) Pulse Ox O2 O2 Flow FiO2 Time Delivery Rate 02/13/19 99.1 78 24 128/73 96 10:40 (91) Physical Exam Const: No acute distress Head: Atraumatic Eyes: Normal Conjunctiva ENT: Normal External Ears, Nose and Mouth. Neck: Full range of motion. No meningismus. Resp: Clear to auscultation bilaterally Cardio: Regular rate and rhythm, no murmurs Abd: Soft, non tender, non distended. Normal bowel sounds Skin: No petechiae or rashes Back: No midline or flank tenderness Ext: No cyanosis, or edema Neur: Awake and alert Psych: Normal Mood and Affect Result Diagram: 02/13/19 1115 02/13/19 1115 Results 24 hrs Laboratory Tests Test 02/13/19 11:15 White Blood Count 5.6 10^3/ul Red Blood Count 4.28 10^6/ul Hemoglobin 12.8 g/dl Hematocrit 39.0 % Mean Corpuscular Volume 91.1 fl Mean Corpuscular Hemoglobin 29.9 pg Mean Corpuscular Hemoglobin Concent 32.8 g/dl Red Cell Distribution Width 13.1 % Platelet Count 182 10^3/UL Mean Platelet Volume 9.5 fl Immature Granulocytes % 0.200 % Neutrophils % 60.8 % Lymphocytes % 31.2 % Monocytes % 6.7 % Eosinophils % 0.7 % Basophils % 0.4 % Nucleated Red Blood Cells % 0.0 /100WBC Immature Granulocytes # 0.010 10^3/ul Neutrophils # 3.4 10^3/ul Lymphocytes # 1.8 10^3/ul Monocytes # 0.4 10^3/ul Eosinophils # 0.0 10^3/ul Basophils # 0.0 10^3/ul Nucleated Red Blood Cells # 0.0 10^3/ul Sodium Level 142 mmol/L Potassium Level 3.9 mmol/L Chloride Level 108 mmol/L Carbon Dioxide Level 25 mmol/L Anion Gap 9 Blood Urea Nitrogen 18 mg/dl Creatinine 0.60 mg/dl Est Glomerular Filtrat Rate mL/min > 60 mL/min Glucose Level 120 mg/dl Calcium Level 9.3 mg/dl Total Bilirubin 0.6 mg/dl Direct Bilirubin 0.00 mg/dl Indirect Bilirubin 0.6 mg/dl Aspartate Amino Transf (AST/SGOT) 22 IU/L Alanine Aminotransferase (ALT/SGPT) 28 IU/L Alkaline Phosphatase 50 IU/L Troponin I < 0.012 ng/ml Total Protein 8.3 g/dl Albumin 4.5 g/dl Globulin 3.80 g/dl Albumin/Globulin Ratio 1.18 Thyroid Stimulating Hormone (TSH) 1.740 MIU/L Procedures/MDM DIAGNOSTIC IMAGING REPORT Patient: CARY PORRAS V : 1955 Age: 63 Sex: F MR #: [id number] [facility] #: [id number] DOS: 02/13/19 1106 Ordering MD: ABIGAIL SOLORZANO Location: [facility] Room/Bed: PROCEDURE: XR chest. CLINICAL INDICATION: Shortness of breath TECHNIQUE: Portable AP view of the chest was obtained. COMPARISON: 07/25/2018 FINDINGS: Cardiomediastinal silhouette is normal. There is no pneumothorax or pleural effusion. There is no focal pulmonic consolidation. IMPRESSION: 1. No acute pulmonary abnormality. RPTAT: DD Physician Huey Date Time Electronically viewed and signed by Physician Huey on 02/13/2019 11:51 RM/ CC: ABIGAIL SOLORZANO [id number] EKG: Rate/Rhythm: Normal Sinus Rhythm QRS, ST, T-waves: No changes consistent w/ acute ischemia Impression: No evidence of ischemia or arrhythmia MDM: Given patient's complaint of shortness of breath, EKG, troponin, chest x- ray were ordered as well as basic labs including TSH. All results within normal limits. Patient confesses to anxiety and I do think that this is most likely explanation for her symptoms. At this time I have low suspicion for TX, pn eumothorax, pulmonary embolism, pneumonia, CVA, symptom medic anemia, or any emergent condition. Patient was given lorazepam to be used as needed for anxiety advised to follow with primary care. At this time, patient is stable for discharge and outpatient management. I have instructed the patient to follow-up with his/her primary care physician in 1-2 days. I have discussed with the patient the possibility of needing to see a specialist for further workup and imaging studies if symptoms persist. I have instructed the patient to promptly return to the ER for any new or worsening symptoms including but not limited to increased pain, fever, nausea, vomiting, weakness or LOC. The patient and/or family expressed understanding of and agreement with this plan. All questions were answered. Home care instructions were provided. DISCLAIMER: Inadvertent spelling and grammatical errors are likely due to EHR/dictation software use and do not reflect on the overall quality of patient care. Also, please note that the electronic time recorded on this note does not necessarily reflect the actual time of the patient encounter. Departure Diagnosis: Primary Impression: Shortness of breath Additional Impression: Anxiety Condition: Stable ABIGAIL SOLORZANO Feb 13, 2019 11:32
[2019-02-13 13:56] VITALS: BP 117/68; PULSE 75; RESP 18
== END 2019-02-13 13:57 | disposition home or self-care (01) ==
LOC: FTE 10:38
DX: F41.9 Anxiety disorder, unspecified (principal); Z85.841 Personal history of malignant neoplasm of brain
CPT/HCPCS: 71045; 80053; 84443; 84484; 85025; 93005